=== PATIENT | male | born 1985 | race Caucasian/White ===

== ENCOUNTER 2023-12-14 21:01 | Emergency (ER) | payer BC, SELFPAY ==
[2023-12-14 21:03] VITALS: BP 198/100
--- NOTE | 2023-12-14 22:56 | ED.MUSCINJ ---
HPI-Injury
General
Chief Complaint: Musculo-Skeletal Complaint
Source: patient
Exam Limitations: none
Time Seen by Provider: 12/14/23 22:16
Nursing documentation reviewed up to this point in time: agreed with
History of Present Illness-Injury
Initial Injury comments:
38-year-old male with no significant past medical history states he was standing for a while texting on his phone, went to take a step and rolled his left foot. States pain is in the lateral aspect of his foot
Past History
Past History
ED Past Medical History: None
ED Past Surgical History: Other (Facial surgery)
Social History
Tobacco: Non-smoker
Alcohol: Occasional
Personal: Single
Living: with family
Employment: Employed
Review of Systems
Review of Systems
Allergies reviewed?: Yes
All Other Systems: ROS reviewed and negative except as documented in HPI and ROS
Neurological: Reports other (Pain and swelling lateral aspect left foot)
Musculoskeletal Injury Exam
Musculoskeletal Injury Exam
Left Lateral Foot:
Pain with Movement?: Moderate
Tender to palpation?: Moderate
Soft tissue swelling?: Mild
External deformity and angulation?: None
Crepitus with movement?: No
Joint instability?: No
Malalignment/deformity?: No
Distal skin color and temperature: normal-warm & good color
Capillary Refill: normal
Normal distal neurovascular exam?: Yes
Phy Exam
Physical Exam
Physical Exam:
PHYSICAL EXAMINATION:
General: no apparent distress, not acutely ill
Neuro: alert and oriented.
Psychiatric: well kept. interactive and cooperative
Musculoskeletal: Moves with ease
Skin: Warm, pink.
Injury Course
Orders/Labs/Results
Orders:
Orders
12/14/23 21:05
CR Foot - Left Min 3 Views Urgent
Comment:
Reason For Exam: injury
12/14/23 22:17
Ortho Boot Left- Treatment ONCE
Short or tall?: Short
12/14/23 23:09
Crutches-Treatment ONCE
MDM/Problems Addressed
Differential Diagnosis Includes:
Fracture versus sprain foot
MDM/Problems Addressed:
38-year-old male with no significant past medical history states he was standing for a while texting on his phone, went to take a step and rolled his left foot. States pain is in the lateral aspect of his foot
X-ray foot initially read by this examiner: There is a minimally displaced spiral fracture of the distal shaft of the left fifth metatarsal
Ortho boot and crutches given, referred to orthopedics
BP 148/104 pt states his BP is always high with doctors. Will have it rechecked
*Critical Care Note
Total Time (30-74mins, 75-104mins- exclusive of procedures): Not Applicable
ED Attending Note
-
Portions of this chart may have been created with voice recognition software.� Occasional wrong word or��sound alike� substitutions may have occurred due to the inherent limitations of voice recognition software.
Discharge Plan
Departure
Patient Disposition: Home (Routine Discharge)
Date of Disposition: 12/14/23
Time of Disposition: 22:59
Patient with high blood pressure during this ER visit?: Yes
Condition: Good
Discharge Problem:
Fracture left fifth metatarsal tarsal
Instructions: Using Cold for Pain, Foot Fracture ED, BLOOD PRESSURE
Referrals:
Fracisco Verma MD [Active] - Next open appointment
UNKNOWN - PT DOES,NOT KNOW [Family Provider] -
Activity Restrictions/Additional Instructions:
As we discussed, use the crutches with little weightbearing until further instructed by the orthopedic doctor.
Keep the orthopedic boot on at all times when up and around until further instructed by the orthopedic doctor
When you are resting you may remove the boot to apply cold compress 15 minutes off and on several times during the day to minimize swelling
Tylenol or ibuprofen as needed for pain
Call the orthopedic doctors office tomorrow morning and make next available appointment
Interventions
Interventions:
*Risk Screen - Suicide Last Done: 12/14/23 22:32
*General Assessment Last Done: 12/14/23 21:03
*Neglect/Abuse Screening Last Done: 12/14/23 22:32
ED-Musculoskeletal Assessment Last Done: 12/14/23 22:32
Discharge Date and Time
Print Language: ANGUILLAN
[2023-12-15 00:59] VITALS: BP 148/104
== END 2023-12-15 01:01 | disposition home or self-care (01) ==
LOC: EMR 21:01
PROVIDERS: EMERGENCY PHYSICIAN Emergency Medicine
DX: S92.352A Displaced fracture of fifth metatarsal bone, left foot, initial encounter for closed fracture (principal); X50.1XXA Overexertion from prolonged static or awkward postures, initial encounter; R03.0 Elevated blood-pressure reading, without diagnosis of hypertension
CPT/HCPCS: 99283; 73630